=== PATIENT | male | born 1980 | race American Indian/Alaskan Native ===

== ENCOUNTER 2017-06-23 20:21 | Emergency (ER) | payer SELFPAY ==
[2017-06-23] MEDS ORDERED: MORPHINE ONE ×2 (20:23)
[2017-06-23] MEDS ORDERED: NACL 0.9% 1000 ML 1,000 ML IV ONE (20:24)
[2017-06-23] MEDS ORDERED: ZOFRAN ONE (20:24)
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
[2017-06-23 20:40] VITALS: BP 133/96
[2017-06-23 20:40] LABS: Basophils # (Auto) 0.1 K/mm3 (0.0-0.1); Basophils % (Auto) 0.8 % (0.0-1.8); Eosinophils # (Auto) 0.1 K/mm3 (0.0-0.4); Eosinophils % (Auto) 0.9 % (0.0-4.3); Hemoglobin 15.3 gm/dl (11.8-15.2); Lymphocytes # (Auto) 3.4 K/mm3 (1.2-5.4); Lymphocytes % (Auto) 44.1 % (13.4-35.0); Mean Corpuscular HGB Conc 33 % (32-34); Mean Corpuscular Hemoglobin 27 pg (28-32); Mean Corpuscular Volume 81 fl (84-94); Monocytes # (Auto) 0.6 K/mm3 (0.0-0.8); Monocytes % (Auto) 7.4 % (0.0-7.3); Red Blood Count 5.66 M/mm3 (3.65-5.03); Red Cell Distribution Width 14.4 % (13.2-15.2)
[2017-06-23 20:41] LABS: Platelet Count 276 K/mm3 (140-440)
[2017-06-23] MEDS ORDERED: MORPHINE IV ONE (20:42)
[2017-06-23] MEDS ORDERED: ZOFRAN IV ONE (20:42)
[2017-06-23] MEDS ORDERED: SUBLIMAZE IV ONE (20:43)
[2017-06-23] MEDS ORDERED: SUBLIMAZE ONE (20:43)
[2017-06-23 20:49] LABS: INR 0.9 (0.87-1.13)
[2017-06-23 20:50] LABS: Partial Thromboplastin Time 29.6 Sec. (24.2-36.6)
--- NOTE | 2017-06-23 20:50 | XRay Report ---
FINAL REPORT PROCEDURE: XR CHEST 1V AP TECHNIQUE: Chest radiograph anteroposterior view. CPT 19254 HISTORY: chest pain COMPARISON: No prior studies are available for comparison. FINDINGS: Heart: Normal. Mediastinum/Vessels: Normal. Lungs/Pleural space: Normal. Bony thorax: No acute osseous abnormality. Life support devices: None. IMPRESSION: No acute cardiopulmonary abnormality.
[2017-06-23 21:00] LABS: Alanine Aminotransferase 34 units/L (7-56); Albumin 4.7 g/dL (3.9-5); BUN/Creatinine Ratio 6; Blood Urea Nitrogen 9 mg/dL (9-20); Calcium 9.3 mg/dL (8.4-10.2); Hemolysis Index 27
--- NOTE | 2017-06-23 21:48 | Cat Scan Report ---
FINAL REPORT PROCEDURE: CT HEAD/BRAIN WO CON TECHNIQUE: Computerized tomography of the head was performed without contrast material. HISTORY: Trauma COMPARISON: No prior studies are available for comparison. FINDINGS: Skull and scalp: Normal. Paranasal sinuses: Normal. Ventricles and subarachnoid spaces: Normal. Cerebrum: No evidence of hemorrhage, acute infarction or mass . Cerebellum and brainstem: No evidence of hemorrhage, acute infarction or mass. Vasculature: Normal. Comments: None. IMPRESSION: There is no evidence of an acute intracranial process.
[2017-06-23] MEDS ORDERED: DILAUDID IV ONE (22:06)
--- NOTE | 2017-06-23 22:13 | Cat Scan Report ---
FINAL REPORT PROCEDURE: CT CERVICAL SPINE WO CON TECHNIQUE: Computerized tomography of the cervical spine was performed from the skull base to T1 without contrast material. HISTORY: Trauma COMPARISON: No prior studies are available for comparison. FINDINGS: The skull base and foramen magnum are intact. Cervical vertebrae are intact. There are no fractures or malalignments. C1-2: No significant abnormality. C2-3: No significant abnormality. C3-4: No significant abnormality. C4-5: No significant abnormality. C5-6: There is mild decreased disc height.. C6-7: No significant abnormality. C7-T1: No significant abnormality. Other: Prevertebral soft tissues are normal in thickness.. IMPRESSION: No significant abnormality.
--- NOTE | 2017-06-23 22:19 | Cat Scan Report ---
FINAL REPORT PROCEDURE: CT ABDOMEN PELVIS W CON TECHNIQUE: Computerized axial tomography of the abdomen and pelvis was performed after the IV injection of iodinated nonionic contrast. HISTORY: Trauma COMPARISON: No prior studies are available for comparison. FINDINGS: Visualized lower thorax: No significant abnormality. Liver: Normal size and attenuation. There are 2 hypodense lesions in the left lobe of the liver. These measure 1.4 and 2.2 centimeters and suggest hemangiomas. There is no liver laceration. Spleen: Normal size and attenuation. There is no spleen laceration. Gallbladder and biliary system: Normal. Pancreas: Normal. Adrenals: Normal. Kidneys: Normal. GI tract: Normal. Lymph nodes and mesentery: Normal. Vasculature: Normal. Bladder: Normal. Reproductive organs: Normal. Peritoneum: There is no hemoperitoneum.. Musculoskeletal structures: No significant abnormality. Other: None. IMPRESSION: There are 2 hypodense lesions in the left lobe of the liver. These measure 1.4 and 2.2 centimeters and suggest hemangiomas. There is no liver laceration. There is no spleen laceration. There is no hemoperitoneum.. There is no bony abnormality.
--- NOTE | 2017-06-23 22:25 | Cat Scan Report ---
FINAL REPORT PROCEDURE: CT CHEST W CON TECHNIQUE: Computerized axial tomography of the chest was performed during the IV injection of iodinated nonionic contrast. HISTORY: Trauma COMPARISON: No prior studies are available for comparison. TECHNICAL QUALITY: Satisfactory. FINDINGS: Heart and pericardium: Normal. Thoracic aorta: Normal. Pulmonary vasculature: Normal. Lymph nodes: No enlarged thoracic lymph nodes. Lungs: There is right lower lobe pulmonary atelectasis and right posterior pleural thickening.. Pleural space: There is no pleural effusion or pneumothorax.. Musculoskeletal structures: There are fractures of the posterior aspects of right ribs numbers 3 and 5. Upper abdominal structures: No significant abnormality. IMPRESSION: There is no thoracic aortic injury or mediastinal hematoma. There is right lower lobe pulmonary atelectasis and right posterior pleural thickening.. There is no pleural effusion or pneumothorax.. There are fractures of the posterior aspects of right ribs numbers 3 and 5.
[2017-06-23 23:10] LABS: Bilirubin,Urine NEG (Negative); Blood,Urine NEG (Negative); Color,Urine Yellow (Yellow); Mucus,Urine FEW /HPF; Protein,Urine <15 mg/dL mg/dL (Negative); Urobilinogen,Urine < 2.0 mg/dL (<2.0)
== END 2017-06-23 23:42 | disposition other institution (70) ==
LOC: ED 20:21
DX: S22.41XA Multiple fractures of ribs, right side, initial encounter for closed fracture (principal); S27.321A Contusion of lung, unilateral, initial encounter; S39.91XA Unspecified injury of abdomen, initial encounter; R55 Syncope and collapse; V89.2XXA Person injured in unspecified motor-vehicle accident, traffic, initial encounter; Y93.89 Activity, other specified; Y92.89 Other specified places as the place of occurrence of the external cause; Y99.8 Other external cause status
CPT/HCPCS: 36415; 70450; 71045; 71260; 72125; 74177; 80053; 81001; 85025; 85610; 85730; 86850; 86900; 86901; 93005; 93010; 96361; 96374; 96375; 99285; J1170; J2270; J2405; J3010; J7030; Q9967